=== PATIENT | male | born 1985 | race Caucasian/White ===

== ENCOUNTER 2022-12-05 13:48 | Outpatient (CLI) | payer OTHER, SELFPAY ==
--- NOTE | ~2022-12-05 | XR_ITS ---
EXAMINATION: XR ribs LT 2V w CXR 2V Exam Date/Time: 12/05/2022 13:57 CDT HISTORY: Pleurodynia, ant,Lt lower rib pain 3 days w/o known injury Comparison: 09/07/2005. RESULT: Lines, tubes, and devices: None. Lungs and pleura: Clear. Cardiothymic silhouette: Stable. Other: No acute osseous or upper abdominal finding. IMPRESSION: No acute cardiopulmonary process. No acute osseous finding in the left ribs. Reviewed, dictated and finalized at location K.
== END 2022-12-05 13:49 | disposition home or self-care (01) ==
PROVIDERS: PCP Family Medicine; Visit Provider Family Medicine
DX: R07.81 Pleurodynia (principal)
CPT/HCPCS: 71046; 71100

== ENCOUNTER 2023-04-05 07:36 | Outpatient (CLI) | payer OTHER, SELFPAY ==
--- NOTE | ~2023-04-05 | US_ITS ---
EXAMINATION: US abdomen complete DATE: 04/05/2023 08:21 INDICATION: Abdominal and epigastric pain. TECHNIQUE: Multiple grayscale and Doppler ultrasound images of the abdomen were obtained. COMPARISON: None FINDINGS: The pancreatic head and body are normal in appearance. The pancreatic tail is not visualized. Liver has normal contour, with a smooth surface. There is increased parenchymal echogenicity and coarsened echotexture consistent with diffuse hepatic steatosis. No liver lesion identified. No intrahepatic b iliary duct dilation suspected. Portal venous flow was seen in the hepatopetal, normal direction and has normal Doppler waveform. The gallbladder is normal in appearance. There is no cholelithiasis. Th e common bile duct measures 3 mm, which is normal. Sonographic Perkins sign was reported as negative b y the senior partner. There is normal renal contour and echogenicity bilaterally. The right kidney measu res 12.0 x 6.5 x 6.6 cm and the left 2.0 x 5.9 x 5.8 cm. There are no focal renal lesions identified . There is no hydronephrosis. Normal spleen measuring 11.4 cm in maximal length. Abdominal aorta trip sures 2.4 similar proximally, 2.1 cm in the mid aorta and 2.0 cm the distal aorta. The proximal infer ior vena cava is poorly visualized but appears unremarkable. IMPRESSION: 1. Diffuse hepatic steatosis. Otherwise normal abdominal ultrasound. Reviewed, dictated and finalized at location A.
== END 2023-04-05 07:37 | disposition home or self-care (01) ==
LOC: ANHIMG 07:37
PROVIDERS: PCP Family Medicine; Visit Provider Nurse Practitioner Family
DX: R10.9 Unspecified abdominal pain (principal); K76.0 Fatty (change of) liver, not elsewhere classified
CPT/HCPCS: 76700

== ENCOUNTER 2023-04-22 09:26 | Outpatient (CLI) | payer OTHER, SELFPAY ==
--- NOTE | 2023-04-22 09:42 | EST_ITS ---
Patient Info Name: Ruben Tijerina Age: 37 years : 1985 Gender: Male Ht: 66 in Wt: 250 lbs BSA: 2.35 m2 Exam Date: 04/22/2023 9:52 AM Exam Location: [facility] Patient Status: Outpatient Admit Date: 04/22/2023 Staff Ordering Physician: Jailene Russell APRN Attending Provider: Jailene Russell APRN Exercise Technologist: Delicia Jennings RDCS Exercise Physician: Wes Adorno DO Exam Type: CA stress test treadmill Study Info Indications R07.9 - Chest pain, unspecified A treadmill exercise stress test was performed. Summary 1. 1. Negative Mode exercise stress test for ischemic ST changes by ECG criteria. 2. 2. Reduced functional capacity, achieving 8.9 METs of workload. 3. 3. Appropriate HR response to exercise. 4. 4. Appropriate HR recovery at 1 minute post exercise. 5. 5. No imaging with stress testing. 6. 6. Patient informed of the above results. Protocol: Mode Stress ECG Details Stage: REST Duration (min): 2 min : 20 sec Speed (mph): 0.0 Grade (%): 0 HR (bpm): 88 SBP (mmHg): 122 DBP (mmHg): 98 METS: --- Stage: REST Duration (min): 4 min : 0 sec Speed (mph): 0.0 Grade (%): 0 HR (bpm): 100 SBP (mmHg): 122 DBP (mmHg): 98 METS: --- Stage: STAGE 1 Duration (min): 1 min : 0 sec Speed (mph): 1.7 Grade (%): 10 HR (bpm): 115 SBP (mmHg): 122 DBP (mmHg): 98 METS: --- Stage: STAGE 1 Duration (min): 2 min : 0 sec Speed (mph): 1.7 Grade (%): 10 HR (bpm): 127 SBP (mmHg): 122 DBP (mmHg): 98 METS: --- Stage: STAGE 1 Duration (min): 3 min : 0 sec Speed (mph): 1.7 Grade (%): 10 HR (bpm): 131 SBP (mmHg): 156 DBP (mmHg): 90 METS: --- Stage: STAGE 2 Duration (min): 1 min : 0 sec Speed (mph): 2.5 Grade (%): 12 HR (bpm): 139 SBP (mmHg): 156 DBP (mmHg): 90 METS: --- Stage: STAGE 2 Duration (min): 2 min : 0 sec Speed (mph): 2.5 Grade (%): 12 HR (bpm): 146 SBP (mmHg): 159 DBP (mmHg): 95 METS: --- Stage: STAGE 2 Duration (min): 3 min : 0 sec Speed (mph): 2.5 Grade (%): 12 HR (bpm): 157 SBP (mmHg): 159 DBP (mmHg): 95 METS: --- Stage: STAGE 3 Duration (min): 1 min : 0 sec Speed (mph): 3.4 Grade (%): 14 HR (bpm): 172 SBP (mmHg): 153 DBP (mmHg): 78 METS: --- Stage: STAGE 3 Duration (min): 1 min : 0 sec Speed (mph): 3.4 Grade (%): 14 HR (bpm): 172 SBP (mmHg): 153 DBP (mmHg): 78 METS: --- Stage: RECOVERY Duration (min): 0 min : 59 sec Speed (mph): 0.0 Grade (%): 0 HR (bpm): 160 SBP (mmHg): 151 DBP (mmHg): 77 METS: --- Stage: RECOVERY Duration (min): 1 min : 59 sec Speed (mph): 0.0 Grade (%): 0 HR (bpm): 138 SBP (mmHg): 151 DBP (mmHg): 77 METS: --- Stage: RECOVERY Duration (min): 2 min : 59 sec Speed (mph): 0.0 Grade (%): 0 HR (bpm): 123 SBP (mmHg): 133 DBP (mmHg): 79 METS: --- Stage: REC
== END 2023-04-22 09:27 | disposition home or self-care (01) ==
LOC: ANHCARD 09:26
PROVIDERS: PCP Family Medicine; Visit Provider Nurse Practitioner Family
DX: R07.9 Chest pain, unspecified (principal)
CPT/HCPCS: 93017

== ENCOUNTER 2024-03-11 11:22 | Outpatient (CLI) | payer OTHER, SELFPAY ==
--- NOTE | ~2024-03-11 | CT_ITS ---
EXAMINATION: CT facial bones w con DATE: 03/11/2024 12:05 INDICATION: Cellulitis and abscess of mouth. TECHNIQUE: Computed tomography (CT) of the facial bones and maxillofacial region was performed with 7 5 mL Omnipaque 350 intravenous contrast. Automated exposure control and iterative reconstruction tech [employer]que were employed. The dose-length product was 301.47 mGy-cm. COMPARISON: None. FINDINGS: There is a mildly enlarged right submandibular lymph node, likely reactive. The orbits are normal. There is mucosal thickening in the paranasal sinuses, worst in right maxillary sinus. The mas toid air cells are normal. Tooth 3 demonstrates a carious lesion and periapical lucencies with breech of the buccal and lingual cortex of the alveolar process. There is a 9 x 4 mm subperiosteal abscess adjacent to the buccal cortex. IMPRESSION: 1. Carious lesion of tooth 3 with periapical lucencies and subperiosteal abscess. 2. Mildly enlarged right submandibular lymph node, likely reactive. Reviewed, dictated and finalized at location A. IMPRESSION: 1. Carious lesion of tooth 3 with periapical lucencies and subperiosteal absces s. 2. Mildly enlarged right submandibular lymph node, likely reactive.
[2024-03-11 11:52] LABS: Estimated Glomerular Filt Rate > 60
== END 2024-03-11 11:23 | disposition home or self-care (01) ==
LOC: ANHIMG 11:22
PROVIDERS: PCP Family Medicine; Visit Provider Nurse Practitioner Family
DX: K12.2 Cellulitis and abscess of mouth (principal); R59.0 Localized enlarged lymph nodes
CPT/HCPCS: 70487; Q9967